=== PATIENT | female | born 1970 | race Caucasian/White ===

== ENCOUNTER 2017-05-19 14:43 | Observation (INO) | payer OTHER ==
[2017-05-19] MEDS ORDERED: KETOROLAC 30 MG/1 ML SDV IVP ONE (15:12)
[2017-05-19] MEDS ORDERED: ACETAMINOPHEN 500 MG TAB PO ONE (15:12)
[2017-05-19] MEDS ORDERED: NS 1,000 ML IV ONE ×2 (15:12→16:50)
[2017-05-19] MEDS ORDERED: IPRATROPIUM/ALBUTEROL 3 ML DEYVIAL IH ONE ×2 (15:14→16:50)
[2017-05-19] MEDS ORDERED: methylPREDNISolone SOD SUCC 125 MG/2 ML VIAL IVP ONE (15:14)
--- NOTE | 2017-05-19 15:17 | EDPHY ---
H & P <Kandcae Benavides M - Last Filed: 05/19/17 19:05> Stated Complaint: cough, hypoxia - Personal History LMP (Females 10-55): 15-21 Days Ago Current Tetanus/Diphtheria Vaccine: Unsure Current Tetanus Diphtheria and Acellular Pertussis (TDAP): Unsure Tetanus Vaccine Date: 2007 - Medical/Surgical History Hx Asthma: No Hx Chronic Respiratory Disease: No Hx Diabetes: No Hx Cardiac Disease: No Hx Renal Disease: No Hx Cirrhosis: No Hx Alcoholism: No Hx HIV/AIDS: No Hx Splenectomy or Spleen Trauma: No Other PMH: hepatitis A, - Social History Smoking Status: Never smoked <Senthil Meza - Last Filed: 05/21/17 08:11> Time Seen by Provider: 05/19/17 15:05 HPI/ROS: CHIEF COMPLAINT: Wheezing, flu-like symptoms since last evening HISTORY OF PRESENT ILLNESS: 47-year-old immunocompetent female with up-to-date influenza vaccination, history of asthma, complaining of flu-like symptoms, wheezing, dyspnea since last evening. Seen by her PCP today, then went to urgent care, that was referred to the emergency department for evaluation as she complains of continued symptoms. She is experiencing fever, chills, myalgias, nonproductive cough, sore throat, headache. No nuchal rigidity. No chest pain or back pain. No abdominal pain. No urinary abnormality. No rash. REVIEW OF SYSTEMS: A ten point review of systems was performed and is negative with the exception of the items mentioned in the HPI PAST MEDICAL & SURGICAL HISTORY: Up-to-date with influenza vaccination. Asthma. SOCIAL HISTORY:Positive for marijuana smoking PHYSICAL EXAM (Prior to examination, patient consented to physical exam, hands were washed and my usual and customary physical exam procedures followed) 1) GENERAL: Well-developed, well-nourished, alert and oriented. Appears to be in no acute distress. 2) HEAD: Normocephalic, atraumatic 3) HEENT: Pupils equal, round, reactive to light bilaterally. Sclera anicteric. Nasopharynx, oropharynx, clear, no lesions. No tonsillar enlargement or exudate. No trismus no drooling. Ears bilaterally with normal tympanic membranes. 4) NECK: Full range of motion, no meningeal signs. 5) LUNGS: Bilateral end-expiratory wheeze. No retractions or accessory muscle use. 6) HEART: Regular rate and rhythm, no murmur, no heave, no gallop. 7) ABDOMEN: No guarding, no rebound, no focal tenderness, negative McBurney's, negative Banda's, negative Rovsing's, negative peritoneal sign, 8) MUSCULOSKELETAL: Moving all extremities, no focal areas of tenderness, no obvious trauma. No peripheral edema or discoloration. 9) BACK: No CVA tenderness, no midline vertebral tenderness, no fluctuance, no step-off, no obvious trauma, no visual or palpable abnormality. 10) SKIN: No rash, no petechiae. 11) Psychiatric: Patient is oriented X 3, there is no agitation. DIFFERENTIAL DIAGNOSIS: In no particular include but limited to influenza, pneumonia, bronchitis, acute asthma exacerbation. (Senthil Meza) Constitutional: Initial Vital Signs Temperature (C) 37.5 C 05/19/17 14:52 Heart Rate 118 H 05/19/17 14:52 Respiratory Rate 22 H 05/19/17 14:52 Blood Pressure 110/83 H 05/19/17 14:52 O2 Sat (%) 85 L 05/19/17 14:52 O2 Delivery Mode Nasal Cannula O2 (L/minute) 2 Allergies/Adverse Reactions: No Known Allergies Allergy (Unverified 05/19/17 14:51) Home Medications: Medication Instructions Recorded Albuterol [Proventil Inhaler HFA 1 puffs IH Q4H PRN 05/19/17 (*)] Herbals/Supplements -Info Only 1 ea PO DAILY 05/19/17 guaiFENesin/DEXTROMETHORPHAN 1 tab PO DAILY PRN 05/19/17 [Mucus Dm 600-30 mg Tablet] Medical Decision Making <Kandace Benavides - Last Filed: 05/19/17 19:05> <Senthil Meza - Last Filed: 05/21/17 08:11> ED Course/Re-evaluation: 3:16 p.m.: Care of patient under supervision of secondary supervising physician Dr Kandace Benavides with whom I discussed case. Patient is noted to be tachypneic, wheezing, hypoxemic. 4:30 p.m.: Patient re-evaluated at this time she is feeling significant improvement "I feel much much better " , maintaining saturations of 90-93% on room air. Her lungs are clear bilaterally, wheezing has resolved. No retractions or accessory muscle use. Her primary complaint at this time is nasal congestion. She will be given intranasal Afrin. 5:00 p.m.: Patient was re-evaluated, her saturations dropped into the mid 80s. Will administer further DuoNeb treatment. Care turned over to Dr. Kandace Benavides at this time will follow up on the patient's response to breathing treatment (Senthil Meza) Other Provider: 1815: Reassessed patient, she is currently tachycardic with a rate of 116 and her O2Sat is 92% on 1L room air. Her temperature is 37.7 degrees. Her O2Sats continue to drop into the 80's when she is not on room air. Patient and her are comfortable with plan for admission. 1904: Consulted with hospitalist service, Dr. Clemons accepts admission of this patient. (Kandace Benavides) - Data Points Laboratory Results: Laboratory Results 05/19/17 15:15 05/19/17 15:15 Microbiology Results: MICROBIOLOGY 05/19/17 15:15 Blood Blood Culture - Preliminary 05/19/17 15:45 Blood Blood Culture - Preliminary Medications Given: Acetaminophen (Tylenol) 650 mg PO Q4HRS PRN PRN Reason: Pain, Mild/Fever, Can Take PO Stop: 11/15/17 19:41 Last Admin: 05/20/17 08:15 Dose: 650 mg Albuterol (Proventil Neb) 3 ml IH Q4HRS PRN PRN Reason: Short of Breath/Dyspnea Stop: 11/15/17 19:40 Last Admin: 05/19/17 20:56 Dose: 3 ml Fluticasone Propionate (Flonase Nasal [place]) 1 sprays EACHNARE DAILY PRN PRN Reason: ALLERGIES Stop: 11/16/17 16:19 Last Admin: 05/20/17 20:15 Dose: 1 spray Guaifenesin/Dextromethorphan (Robitussin Dm Oral Liquid) 10 ml PO Q4HRS PRN PRN Reason: Cough, Moderate Stop: 11/16/17 01:49 Last Admin: 05/21/17 03:43 Dose: 10 ml Methylprednisolone Sodium Succinate (Solu-Medrol) 60 mg IVP BID DOMINIQUE Stop: 11/15/17 20:59 Last Admin: 05/20/17 21:44 Dose: 60 mg Ondansetron HCl (Zofran Odt) 4 mg PO Q4HRS PRN PRN Reason: Nausea/Vomiting, Use 1st Stop: 11/15/17 19:41 Last Admin: 05/20/17 08:15 Dose: 4 mg Discontinued Medications Acetaminophen (Tylenol) 1,000 mg PO EDNOW ONE Stop: 05/19/17 15:13 Last Admin: 05/19/17 15:29 Dose: 1,000 mg Albuterol/Ipratropium (Duoneb) 3 ml IH EDNOW ONE Stop: 05/19/17 15:15 Last Admin: 05/19/17 15:29 Dose: 3 ml Albuterol/Ipratropium (Duoneb) 3 ml IH EDNOW ONE Stop: 05/19/17 16:51 Last Admin: 05/19/17 16:57 Dose: 3 ml Sodium Chloride (Ns) 1,000 mls @ 0 mls/hr IV ONCE ONE PRN Reason: Wide Open Stop: 05/19/17 15:13 Last Admin: 05/19/17 15:27 Dose: 1,000 mls Sodium Chloride (Ns) 1,000 mls @ 0 mls/hr IV ONCE ONE PRN Reason: Wide Open Stop: 05/19/17 16:51 Last Admin: 05/19/17 16:57 Dose: 1,000 mls Ketorolac Tromethamine (Toradol) 30 mg IVP EDNOW ONE Stop: 05/19/17 15:13 Last Admin: 05/19/17 15:29 Dose: 30 mg Methylprednisolone Sodium Succinate (Solu-Medrol) 125 mg IVP EDNOW ONE Stop: 05/19/17 15:15 Last Admin: 05/19/17 15:29 Dose: 125 mg Oxymetazoline HCl (Afrin Nasal [place]) 2 sprays EACHNARE EDNOW ONE Stop: 05/19/17 16:32 Last Admin: 05/19/17 16:38 Dose: 2 sprays Departure <Kandace Benavides - Last Filed: 05/19/17 19:05> <Senthil Meza - Last Filed: 05/21/17 08:11> - Departure Disposition: [facility] Acute Clinical Impression: Hypoxia, Tachycardia Asthma exacerbation Qualifiers: Asthma severity: moderate Asthma persistence: unspecified Qualified Code(s): J45.901 - Unspecified asthma with (acute) exacerbation Condition: Fair Report Scribed for: Kandace Benavides Report Scribed by: Carlene Milan Date of Report: 05/19/17 Time of Report: 18:15 <Kandace Benavides - Last Filed: 05/19/17 19:05>
[2017-05-19 15:23] LABS: PLATELET COUNT 189 10^3/uL (150-400)
[2017-05-19] MEDS ORDERED: OXYMETAZOLINE 30 ML NASAL SPRAY EACHNARE ONE (16:31)
[2017-05-19] MEDS ORDERED: DEXTROMETHORPHAN PO PRN (19:40)
[2017-05-19] MEDS ORDERED: GUAIFENESIN PO PRN (19:40)
[2017-05-19] MEDS ORDERED: ALBUTEROL 3 ML DEYVIAL IH PRN (19:41)
[2017-05-19] MEDS ORDERED: ACETAMINOPHEN 325 MG TAB PO PRN (19:42)
[2017-05-19] MEDS ORDERED: ONDANSETRON DISINTEGRATING 4 MG TAB PO PRN (19:42)
[2017-05-19] MEDS ORDERED: ONDANSETRON 4 MG/2 ML VIAL IVP PRN (19:42)
--- NOTE | 2017-05-19 20:46 | PDGENHP ---
History and Physical - Chief Complaint SOB - History of Present Illness This is a 47 yo female who woke up with SOB, Cough, and wheezing. She has a hx of Asthma and is on albuterol at home. She had been feeling previously well. In the E.D. she was found to be hypoxic despite IV steroids and inhalers. Therefore she is being admitted for further w/u and mgmt. She denies fevers, recent travel, sick contacts. She recently got 2 bunnies which she says has been causing some skin irritation after she holds them. Influenza testing was negative, but she tested positive for human rhinovirus vs enterovirus. PMHx: Asthma Allergic Rhinitis PSHx: none SocHx: smokes cannabis, no tobacco or etoh FmHx: NC Studies: CXR personally reviewed c/w hyperexpansion, no infiltrates Influenza negative resp panel: human rhinovirus vs enterovirus History Information - Allergies/Home Medication List Allergies/Adverse Reactions: No Known Allergies Allergy (Unverified 05/19/17 14:51) Home Medications: Albuterol [Proventil Inhaler HFA (*)] 1 puffs IH Q4H PRN 05/19/17 [Last Taken 21:00] Herbals/Supplements -Info Only 1 ea PO DAILY 05/19/17 [Last Taken Unknown] guaiFENesin/DEXTROMETHORPHAN [Mucus Dm 600-30 mg Tablet] 1 tab PO DAILY PRN 05/05 [Last Taken 05/19/17 10:30] I have personally reviewed and updated: medical history, social history - Social History Smoking Status: Never smoked Review of Systems Review of Systems: ROS: 10pt was reviewed & negative except for what was stated in HPI & below Physical Exam Physical Exam: Temp Pulse Resp BP Pulse Ox 37.7 C 103 H 16 95/64 L 94 05/19/17 16:15 05/19/17 19:30 05/19/17 19:30 05/19/17 19:30 05/19/17 19:30 O2 (L/minute) 2 Constitutional: no apparent distress Eyes: PERRL Ears, Nose, Mouth, Throat: moist mucous membranes, hearing normal Cardiovascular: regular rate and rhythym, no murmur, rub, or gallop, No edema Respiratory: reduced air movement, expiratory wheeze Gastrointestinal: normoactive bowel sounds, soft, non-tender abdomen, No guarding, No distension Skin: warm Musculoskeletal: full muscle strength Neurologic: AAOx3 Psychiatric: interacting appropriately, not anxious, not encephalopathic, thought process linear Lymph, Heme, Immunologic: No petechiae Lab Data & Imaging Review 05/19/17 15:15 05/19/17 15:15 WBC 7.16 10^3/uL (3.80-9.50) 05/19/17 15:15 RBC 4.39 10^6/uL (4.18-5.33) 05/19/17 15:15 Hgb 13.2 g/dL (12.6-16.3) 05/19/17 15:15 Hct 39.0 % (38.0-47.0) 05/19/17 15:15 MCV 88.8 fL (81.5-99.8) 05/19/17 15:15 MCH 30.1 pg (27.9-34.1) 05/19/17 15:15 MCHC 33.8 g/dL (32.4-36.7) 05/19/17 15:15 RDW 13.6 % (11.5-15.2) 05/19/17 15:15 Plt Count 189 10^3/uL (150-400) 05/19/17 15:15 MPV 10.1 fL (8.7-11.7) 05/19/17 15:15 Neut % (Auto) 84.7 % (39.3-74.2) H 05/19/17 15:15 Lymph % (Auto) 3.8 % (15.0-45.0) L 05/19/17 15:15 [place] % (Auto) 7.3 % (4.5-13.0) 05/19/17 15:15 Eos % (Auto) 3.2 % (0.6-7.6) 05/19/17 15:15 Baso % (Auto) 0.7 % (0.3-1.7) 05/19/17 15:15 Nucleat RBC Rel Count 0.0 % (0.0-0.2) 05/19/17 15:15 Absolute Neuts (auto) 6.07 10^3/uL (1.70-6.50) 05/19/17 15:15 Absolute Lymphs (auto) 0.27 10^3/uL (1.00-3.00) L 05/19/17 15:15 Absolute Monos (auto) 0.52 10^3/uL (0.30-0.80) 05/19/17 15:15 Absolute Eos (auto) 0.23 10^3/uL (0.03-0.40) 05/19/17 15:15 Absolute Basos (auto) 0.05 10^3/uL (0.02-0.10) 05/19/17 15:15 Absolute Nucleated RBC 0.00 10^3/uL (0-0.01) 05/19/17 15:15 Immature Gran % 0.3 % (0.0-1.1) 05/19/17 15:15 Immature Gran # 0.02 10^3/uL (0.00-0.10) 05/19/17 15:15 VBG Lactic Acid 1.3 mmol/L (0.7-2.1) 05/19/17 15:15 Sodium 142 mEq/L (135-145) 05/19/17 15:15 Potassium 3.7 mEq/L (3.5-5.2) 05/19/17 15:15 Chloride 102 mEq/L (97-110) 05/19/17 15:15 Carbon Dioxide 26 mEq/l (22-31) 05/19/17 15:15 Anion Gap 14 mEq/L (8-16) 05/19/17 15:15 BUN 13 mg/dL (7-23) 05/19/17 15:15 Creatinine 0.8 mg/dL (0.6-1.0) 05/19/17 15:15 Estimated GFR > 60 05/19/17 15:15 Glucose 104 mg/dL (70-100) H 05/19/17 15:15 Calcium 9.5 mg/dL (8.5-10.4) 05/19/17 15:15 Beta HCG, Qual NEGATIVE 05/19/17 15:15 Urine Color YELLOW 05/19/17 17:43 Urine Appearance HAZY 05/19/17 17:43 Urine pH 5.0 (5.0-7.5) 05/19/17 17:43 Ur Specific [place] 1.013 (1.002-1.030) 05/19/17 17:43 Urine Protein NEGATIVE (NEGATIVE) 05/19/17 17:43 Urine Ketones 1+ (NEGATIVE) H 05/19/17 17:43 Urine Blood 1+ (NEGATIVE) H 05/19/17 17:43 Urine Nitrate NEGATIVE (NEGATIVE) 05/19/17 17:43 Urine Bilirubin NEGATIVE (NEGATIVE) 05/19/17 17:43 Urine Urobilinogen NEGATIVE EU (0.2-1.0) 05/19/17 17:43 Ur Leukocyte Esterase NEGATIVE (NEGATIVE) 05/19/17 17:43 Urine RBC 1-3 /hpf (0-3) 05/19/17 17:43 Urine WBC 1-3 /hpf (0-3) 05/19/17 17:43 Ur Epithelial Cells TRACE /lpf (NONE-1+) 05/19/17 17:43 Urine Bacteria TRACE /hpf (NONE SEEN) H 05/19/17 17:43 Urine Mucus 1+ /lpf (NONE-1+) 05/19/17 17:43 Urine Glucose NEGATIVE (NEGATIVE) 05/19/17 17:43 Nasal Influenza A PCR NEGATIVE FOR FLU A (NEGATIVE) 05/19/17 15:35 Nasal Influenza B PCR NEGATIVE FOR FLU B (NEGATIVE) 05/19/17 15:35 Assessment & Plan Assessment: #Acute respiratory failure #Asthma Exacerbation Plan: Admit observation cont steroids nebs if she is willing. She reports that she became tachycardic after her last neb in the E.D. and is therefore afraid to take any going forward cont home meds consider adding antihistamine
[2017-05-19] MEDS: methylPREDNISolone SOD SUCC 125 MG/2 ML VIAL IVP SCH (20:49)
[2017-05-19] MEDS ORDERED: ALBUTEROL 3 ML DEYVIAL IH SCH (21:00)
[2017-05-20] MEDS: GUAIFENESIN/DM 10 ML UDCUP PO PRN ×2 (01:59→16:21)
[2017-05-20] MEDS: methylPREDNISolone SOD SUCC 125 MG/2 ML VIAL IVP SCH ×2 (08:15→21:44)
--- NOTE | 2017-05-20 09:50 | HOSPPROG ---
Hospitalist Progress Note Assessment/Plan: 47 yo F w asthma exacerbation 2/2 viral URI w resulting hypoxemia AHRF: 2/2 asthma exacerbation w resukting hypoventilation improved per pt and is moving reasonable air so will check RA challenge asthma w acute exacerbation: steroids and nebs 5 days total steroids tachycardia: attributable to nebs and acute illness proph: LMWH if staying dispo: attempt to dc today Subjective: cxr w no infiltrate (interp by me). improved Objective: Vital Signs Temp Pulse Resp BP Pulse Ox 36.8 C 90 17 97/67 L 95 05/20/17 09:25 05/20/17 09:25 05/20/17 09:25 05/20/17 09:25 05/20/17 09:25 05/19/17 05/20/17 05/21/17 05:59 05:59 05:59 Intake Total 1425 Balance 1425 - Physical Exam Constitutional: no apparent distress, appears nourished Eyes: PERRL, anicteric sclera Ears, Nose, Mouth, Throat: moist mucous membranes, hearing normal Cardiovascular: regular rate and rhythym, no murmur, rub, or gallop Respiratory: no respiratory distress, other (wheezing and rhonchi throughout. moderately decreaseed air movement) Gastrointestinal: normoactive bowel sounds, soft, non-tender abdomen Genitourinary: No chandler in urethra Skin: warm, normal color Musculoskeletal: full muscle strength Neurologic: AAOx3 ICD10 Worksheet Patient Problems: Problems Problem Status Onset Asthma exacerbation Acute Hypoxia Acute Tachycardia Acute Post-op pain Acute Post-operative nausea and vomiting Acute
--- NOTE | 2017-05-20 09:53 | ASMTCMCOM ---
CM Note CM Note Notes: Pt admitted OBS and anticipate she will DC with no needs. Date Signed: 05/20/2017 09:52 AM Electronically Signed By:Lorena Jefferson LCSW
[2017-05-20] MEDS ORDERED: FLUTICASONE NASAL 120 SPRAYS/16 GM MDI EACHNARE PRN (16:20)
[2017-05-21] MEDS: GUAIFENESIN/DM 10 ML UDCUP PO PRN ×2 (03:43→09:52)
[2017-05-21 07:43] VITALS: BP 98/69; PULSE 68; RESP 17; TEMP 98.7; O2SAT 95
[2017-05-21] MEDS: methylPREDNISolone SOD SUCC 125 MG/2 ML VIAL IVP SCH (10:14)
[2017-05-21] MEDS ORDERED: predniSONE 20 MG TAB PO SCH (11:00)
--- NOTE | 2017-05-21 16:09 | ASDISCHSUM ---
Discharge Information Plan Status:Home with No Needs Medically Cleared to Leave:05/20/2017 Discharge Date:05/21/2017 12:42 PM CM D/C Disposition:Home, Routine, Self-Care ADT D/C Disposition:Home, Routine, Self-Care Projected Discharge Date:05/21/2017 12:42 PM Transportation at D/C:Family Discharge Delay Reason: Follow-Up Date:05/21/2017 12:42 PM Discharge Slot: Final Diagnosis: Placement Information Patient Contact Information Contact Name:CLINTON Relationship: Address:[address] City:[place] Alternate Phone: [facility]/Zip Code:[place] [address] Email: Financial Information Financial Class:HMO and PPO Plans Primary Plan Desc:[facility] Primary Plan Number:[id number] Secondary Plan Desc: Secondary Plan Number: Assessment Information [facility] CM Progress Note CM Note CM Note Notes: Pt admitted OBS and anticipate she will DC with no needs. Date Signed: 05/20/2017 09:52 AM Electronically Signed By:Lorena Jefferson LCSW Case Management Discharge Plan Note Case Management Discharge Discharge Order Complete? Answers: Yes Patient to Obtain Answers: via Family Medications Transportation Arranged Answers: Family/Friends Discharge Comments Notes: Pt admitted with asthma exacerbation. Discharged home today with family and no CM needs. Date Signed: 05/21/2017 04:07 PM Electronically Signed By:MARCI Millan Intervention Information
--- NOTE | 2017-05-21 20:40 | GDS ---
[f rep st] DISCHARGE SUMMARY DISCHARGE DIAGNOSES: 1. Acute asthma exacerbation. 2. Acute viral upper respiratory infection, not influenza. 3. Tachycardia secondary to beta agonist. HISTORY OF PRESENT ILLNESS: A 47-year-old female with a history of asthma, who presents with a viral upper respiratory infection. For details of the patient's initial presentation, please see the hist ory and physical dated 05/19/2017. CONSULTATIVE SERVICES: None. PROCEDURES: On 05/19/2017, the patient had a chest x-ray, which shows no acute infiltrates. HOSPITAL COURSE: 1. Acute asthma exacerbation. The patient presented wheezy and hypoxic, was initiated on inhaled be ta agonists, as well as IV steroids. Over the course of the subsequent 48 hours, had marked improveme nt in her oxygenation and shortness of breath. The day of disposition, the patient was weaned succes sfully off oxygen, and discharged home to complete a short burst of oral steroids, and ongoing use of albuterol as needed for shortness of breath. 2. Acute viral upper respiratory infection. The patient's symptoms were consistent with this. Her influenza testing was negative. She was discharged home with supportive care. MEDICATIONS AT THE TIME OF DISPOSITION: Please reference the med rec printed on 05/21/2017. FOLLOWUP APPOINTMENTS: Outpatient primary care provider for followup in the next 1-2 weeks post disp osition. PENDING STUDIES: None. TIME SPENT: I spent greater than 30 minutes in the planning and coordination of this discharge. /[id number]/MODL
== END 2017-05-21 12:42 | disposition home or self-care (01) ==
LOC: F1N 19:55
PROVIDERS: ADMIT Family Medicine; ATTEND Family Medicine
DX: J45.901 Unspecified asthma with (acute) exacerbation (principal); J06.9 Acute upper respiratory infection, unspecified; R00.0 Tachycardia, unspecified
CPT/HCPCS: 71046; 96361; 96374; 96375; 99285; G0378; J1885; J2930; J7512; J7613

== ENCOUNTER → 2018-06-21 | Outpatient (CLI) | payer OTHER | LOC: FIMAGING 11:09 | PROVIDERS: ATTEND Obstetrics & Gynecology | DX: Z12.31 Encounter for screening mammogram for malignant neoplasm of breast (principal); R14.0 Abdominal distension (gaseous) ==

== ENCOUNTER → 2018-07-13 | Outpatient (CLI) | payer OTHER | LOC: FIMAGING 09:23 | PROVIDERS: ATTEND Obstetrics & Gynecology | DX: N64.89 Other specified disorders of breast (principal); R92.8 Other abnormal and inconclusive findings on diagnostic imaging of breast ==